=== PATIENT | male | born 1970 | race Asian ===

== ENCOUNTER 2021-05-04 14:12 | Emergency (ER) | payer BC, OTHER ==
[~2021-05-04] VITALS: Ht 162.6 cm; Wt 75.0 kg
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
--- NOTE | 2021-05-04 14:46 | NUR ---
TASK RN NOTE: PT SITTING UP IN BED, RESPIRATIONS EVEN AND UNLABORED ON RA. SIDE RAIL UP, CALL LIGHT IN REACH. FRIENDS AT BEDSIDE. AWAITING CT.
[2021-05-04 16:14] VITALS: BP 120/78
--- NOTE | 2021-05-04 16:16 | NUR ---
preceptor RN note: results and POC reviewed with pt. pt given dc instructions and script, educated regarding pcp f/u. pt is a&ox4, resps even and unlabored, gait steady, no complaint at dc. pt ambulatory to dc desk with steady gait, all questions answered.
== END 2021-05-04 16:17 | disposition home or self-care (01) ==
LOC: ED 14:42
DX: S09.90XA Unspecified injury of head, initial encounter (principal); V43.52XA Car driver injured in collision with other type car in traffic accident, initial encounter; Y93.89 Activity, other specified; Y92.410 Unspecified street and highway as the place of occurrence of the external cause; Y99.8 Other external cause status
CPT/HCPCS: 70450; 82962; 99284